=== PATIENT | male | born 1990 | race African-American/Black ===

== ENCOUNTER 2017-06-04 02:09 | Inpatient (IN) | payer MEDICAID ==
[2017-06-04] VITALS (7 sets, daily range): BP systolic 113–131; BP diastolic 64–72
[~2017-06-04] VITALS: Ht 185.4 cm; Wt 69.2 kg
[2017-06-04] MEDS ORDERED: SODIUM CHLORIDE 0.9% 1,000ML IVBOLUS ONE (03:00)
[2017-06-04] MEDS ORDERED: ONDANSETRON 2MG/ML, 2ML IVPush ONE (03:00)
[2017-06-04] MEDS ORDERED: SODIUM CHLORIDE FLUSH 10ML SYR IVF ONE (03:00)
[2017-06-04] MEDS ORDERED: ONDANSETRON 2MG/ML, 2ML ONE (03:12)
[2017-06-04] MEDS ORDERED: HYDROmorphone 2 MG/ML, 1ML ONE ×2 (03:12→11:20)
[2017-06-04] MEDS: HYDROmorphone 2 MG/ML, 1ML IVPush PRN ×4 (03:28→23:15)
[2017-06-04 03:30] LABS: ALBUMIN 3.8 g/dL (3.4-5.0); ANION GAP 8 mmol/L (5-15); CALCIUM 8.2 mg/dL (8.5-10.1); CHLORIDE 110 mmol/L (98-107); CREATININE 0.61 mg/dL (0.7-1.3)
[2017-06-04 03:43] LABS: MD YES; MEAN CORPUSCULAR HEMOGLOBIN 34.3 pg (27.5-34.5); MEAN CORPUSCULAR HGB CONC 34.2 g/dL (33.2-36.2); MEAN CORPUSCULAR VOLUME 100.1 fL (81-97); MEAN PLATELET VOLUME 9.3 fL (7.4-10.4); PLATELET COUNT 264 x10^3/uL (130-400); RED BLOOD COUNT 2.07 x10^6/uL (4.38-5.82); RED CELL DISTRIBUTION WIDTH 22.6 % (9.4-14.8)
[2017-06-04 03:47] LABS: BAND#(MANUAL) 0.17 x10^3/uL; BANDS%(MANUAL) 1 % (0-7); LYMPH#(MANUAL) 4.39 x10^3/uL (1-3.4); LYMPHS% (MANUAL) 26 % (22-44); MONOS#(MANUAL) 1.18 x10^3/uL (0.3-2.7); MONOS% (MANUAL) 7 % (2-9); NRBC % (MANUAL) 2 % (0-1); SEG#(MANUAL) 11.15 x10^3/uL (1.8-6.8); SEGS% (MANUAL) 66 % (42-75)
[2017-06-04 03:48] LABS: ANISOCYTOSIS 2+; OVALOCYTES 2+; POLYCHROMASIA 1+
[2017-06-04 03:49] LABS: SICKLE CELLS 1+; TARGET CELLS 1+
[2017-06-04 03:51] LABS: <PLATELET ESTIMATE> ADEQUATE; LARGE PLATELETS 1+
[2017-06-04 04:07] LABS: CULTURE INDICATED? YES; MICROSCOPIC INDICATED
[2017-06-04 04:14] LABS: ABSOLUTE RETICS # 0.191 x10^6/uL (0.5-1.5); RETICULOCYTE COUNT % 9.22 % (0.5-1.5)
[2017-06-04] MEDS ORDERED: CEFTRIAXONE PMX 1GM/50ML 50 ML ONE (04:52)
[2017-06-04] MEDS: AZITHROMYCIN 500 MG in SODIUM CHLORIDE 0.9% 250 ML IV ONE ×2 (05:00→05:30)
[2017-06-04] MEDS ORDERED: CEFTRIAXONE PMX 1GM/50ML 50 ML IV ONE (05:00)
[2017-06-04] MEDS ORDERED: SODIUM CHLORIDE 0.9% 1,000 ML IV ONE (05:00)
[2017-06-04] MEDS ORDERED: OXYC40TA27 PO (05:03)
[2017-06-04 05:54] LABS: ALBUMIN 3.5 g/dL (3.4-5.0)
[2017-06-04 05:58] LABS: BILIRUBIN, DIRECT 0.5 mg/dL (0.1-0.2); BILIRUBIN,INDIRECT 4.1 mg/dL (0.0-2.0); BILIRUBIN,TOTAL 4.6 mg/dL (0.2-1.0); TOTAL PROTEIN 7.1 g/dL (6.4-8.2)
[2017-06-04] MEDS ORDERED: TRAZODONE 50MG TABLET PO PRN (06:00)
[2017-06-04] MEDS ORDERED: ONDANSETRON 2MG/ML, 2ML IVPush PRN (06:00)
[2017-06-04] MEDS ORDERED: DOCUSATE 100 MG CAPSULE PO PRN (06:00)
[2017-06-04] MEDS ORDERED: LABETALOL 5MG/ML, 20ML IVPush PRN (06:00)
[2017-06-04] MEDS ORDERED: POLYETHYLENE GLYCOL 17 GM PACKET PO PRN (06:00)
[2017-06-04 06:04] LABS: MEAN CORPUSCULAR HEMOGLOBIN 34.5 pg (27.5-34.5); MEAN CORPUSCULAR HGB CONC 34.4 g/dL (33.2-36.2); MEAN CORPUSCULAR VOLUME 100.5 fL (81-97); MEAN PLATELET VOLUME 9.7 fL (7.4-10.4); PLATELET COUNT 249 x10^3/uL (130-400); RED BLOOD COUNT 1.86 x10^6/uL (4.38-5.82); RED CELL DISTRIBUTION WIDTH 21.9 % (9.4-14.8)
[2017-06-04 06:17] LABS: MD YES
[2017-06-04 06:20] LABS: LYMPH#(MANUAL) 4.56 x10^3/uL (1-3.4); LYMPHS% (MANUAL) 27 % (22-44); MONOS#(MANUAL) 1.52 x10^3/uL (0.3-2.7); MONOS% (MANUAL) 9 % (2-9); NRBC % (MANUAL) 3 % (0-1); SEG#(MANUAL) 10.82 x10^3/uL (1.8-6.8); SEGS% (MANUAL) 64 % (42-75)
[2017-06-04 06:21] LABS: OVALOCYTES 2+
[2017-06-04 06:22] LABS: TARGET CELLS 1+
[2017-06-04 06:23] LABS: SICKLE CELLS 1+
[2017-06-04 06:24] LABS: ANISOCYTOSIS 2+
[2017-06-04 06:25] LABS: <PLATELET ESTIMATE> ADEQUATE; LARGE PLATELETS 1+; POLYCHROMASIA 2+
[2017-06-04] MEDS ORDERED: OXYcodone IR 5MG TABLET ONE (09:13)
[2017-06-04] MEDS ORDERED: FAMOTIDINE 20 MG TABLET ONE (09:13)
[2017-06-04] MEDS ORDERED: ONDANSETRON ODT 4 MG ONE (09:13)
[2017-06-04] MEDS: ONDANSETRON ODT 4 MG PO PRN ×2 (09:17→14:33)
[2017-06-04] MEDS: FAMOTIDINE 20 MG TABLET PO SCH ×2 (09:17→19:43)
[2017-06-04] MEDS: OXYcodone IR 5MG TABLET PO PRN ×3 (09:17→22:04)
[2017-06-04] MEDS: D5%-0.45NACL+KCL 20MEQ 1,000 ML IV SCH ×2 (17:29→21:00)
[2017-06-04] MEDS: ACETAMINOPHEN 325 MG TABLET PO PRN (18:10)
[2017-06-04 19:26] LABS: MD YES; MEAN CORPUSCULAR HGB CONC 34.6 g/dL (33.2-36.2); MEAN CORPUSCULAR VOLUME 95.3 fL (81-97); MEAN PLATELET VOLUME 9.2 fL (7.4-10.4); PLATELET COUNT 261 x10^3/uL (130-400); RED BLOOD COUNT 2.59 x10^6/uL (4.38-5.82); RED CELL DISTRIBUTION WIDTH 23.6 % (9.4-14.8)
[2017-06-04 19:29] LABS: LYMPH#(MANUAL) 1.84 x10^3/uL (1-3.4); LYMPHS% (MANUAL) 10 % (22-44); MONOS#(MANUAL) 2.94 x10^3/uL (0.3-2.7); MONOS% (MANUAL) 16 % (2-9); SEG#(MANUAL) 13.62 x10^3/uL (1.8-6.8); SEGS% (MANUAL) 74 % (42-75)
[2017-06-04 19:30] LABS: <PLATELET ESTIMATE> ADEQUATE; LARGE PLATELETS 1+
[2017-06-04 19:31] LABS: ANISOCYTOSIS 2+; OVALOCYTES 2+; POLYCHROMASIA 1+; SICKLE CELLS 2+
[2017-06-04 19:34] LABS: TARGET CELLS 1+
[2017-06-04 20:39] LABS: RAPID INFLUENZA A Negative (Negative); RAPID INFLUENZA B Negative (Negative)
[2017-06-05] MEDS: HYDROmorphone 2 MG/ML, 1ML IVPush PRN ×3 (00:01→23:57)
[2017-06-05] MEDS ORDERED: D5%-0.45NACL+KCL 20MEQ 1,000 ML IV SCH (01:00)
[2017-06-05 02:25] VITALS: BP 111/62
[2017-06-05] MEDS: OXYcodone IR 5MG TABLET PO PRN ×4 (02:28→23:02)
[2017-06-05] MEDS: CEFTRIAXONE 1,000 MG in DEXTROSE 5% 50 ML IV SCH (05:08)
[2017-06-05 05:33] LABS: ALBUMIN 3.5 g/dL (3.4-5.0); ANION GAP 7 mmol/L (5-15); CALCIUM 7.9 mg/dL (8.5-10.1); CHLORIDE 108 mmol/L (98-107)
[2017-06-05 05:36] LABS: ALANINE AMINOTRANSFERASE 17 U/L (12-78); ALKALINE PHOSPHATASE 64 U/L (45-117); BILIRUBIN,TOTAL 5.6 mg/dL (0.2-1.0); CREATININE 0.59 mg/dL (0.7-1.3); TOTAL PROTEIN 7.1 g/dL (6.4-8.2)
[2017-06-05] MEDS ORDERED: CEFTRIAXONE PMX 1GM/50ML 50 ML IV SCH (06:00)
[2017-06-05 06:11] LABS: MEAN CORPUSCULAR HEMOGLOBIN 33.6 pg (27.5-34.5); MEAN CORPUSCULAR HGB CONC 34.9 g/dL (33.2-36.2); MEAN CORPUSCULAR VOLUME 96.5 fL (81-97); MEAN PLATELET VOLUME 9.7 fL (7.4-10.4); PLATELET COUNT 252 x10^3/uL (130-400); RED BLOOD COUNT 2.44 x10^6/uL (4.38-5.82); RED CELL DISTRIBUTION WIDTH 23.5 % (9.4-14.8)
[2017-06-05 06:12] LABS: MD YES
[2017-06-05 06:21] LABS: LYMPH#(MANUAL) 7.62 x10^3/uL (1-3.4); LYMPHS% (MANUAL) 34 % (22-44); MONOS#(MANUAL) 3.14 x10^3/uL (0.3-2.7); MONOS% (MANUAL) 14 % (2-9); SEG#(MANUAL) 11.65 x10^3/uL (1.8-6.8); SEGS% (MANUAL) 52 % (42-75)
[2017-06-05 06:22] LABS: ANISOCYTOSIS 2+
[2017-06-05 06:23] LABS: HYPOCHROMIA 1+; MICROCYTOSIS 1+; OVALOCYTES 1+; SCHISTOCYTES 1+; SPHEROCYTES 1+
[2017-06-05 06:24] LABS: SICKLE CELLS 2+; TARGET CELLS 1+
[2017-06-05 06:26] LABS: <PLATELET ESTIMATE> ADEQUATE
[2017-06-05 06:27] LABS: <PLT MORPHOLOGY> NORMAL PLT MORPH; LARGE PLATELETS 1+
[2017-06-05] MEDS: AZITHROMYCIN 250 MG TABLET PO SCH (07:54)
[2017-06-05] MEDS: FAMOTIDINE 20 MG TABLET PO SCH ×2 (07:55→21:37)
[2017-06-05 08:45] VITALS: BP 107/56
[2017-06-05 13:31] VITALS: BP 119/63
[2017-06-05 15:55] LABS: ALANINE AMINOTRANSFERASE 17 U/L (12-78); ALBUMIN 3.5 g/dL (3.4-5.0); ANION GAP 5 mmol/L (5-15); CHLORIDE 110 mmol/L (98-107)
[2017-06-05 15:57] LABS: ALKALINE PHOSPHATASE 71 U/L (45-117); BILIRUBIN,TOTAL 5.3 mg/dL (0.2-1.0); TOTAL PROTEIN 7.5 g/dL (6.4-8.2)
[2017-06-05] MEDS ORDERED: OMNIPAQUE 350 MG/ML, 75ML BOTTLE ONE (16:02)
[2017-06-05 16:05] LABS: MD YES; MEAN CORPUSCULAR HEMOGLOBIN 33.2 pg (27.5-34.5); MEAN CORPUSCULAR HGB CONC 34.9 g/dL (33.2-36.2); MEAN CORPUSCULAR VOLUME 95.3 fL (81-97); MEAN PLATELET VOLUME 9.1 fL (7.4-10.4); PLATELET COUNT 276 x10^3/uL (130-400); RED BLOOD COUNT 2.44 x10^6/uL (4.38-5.82); RED CELL DISTRIBUTION WIDTH 23.1 % (9.4-14.8)
[2017-06-05] MEDS: METRONIDAZOLE PMX 500MG/100ML 100 ML IV SCH ×2 (16:13→23:57)
[2017-06-05] MEDS: GUAIFENESIN 200 MG TABLET PO SCH ×2 (16:20→21:37)
[2017-06-05 16:40] LABS: EOS#(MANUAL) 0.17 x10^3/uL (0.0-0.4); EOS% (MANUAL) 1 % (1-7); LYMPH#(MANUAL) 4.84 x10^3/uL (1-3.4); LYMPHS% (MANUAL) 28 % (22-44); MONOS#(MANUAL) 1.73 x10^3/uL (0.3-2.7); MONOS% (MANUAL) 10 % (2-9); NRBC % (MANUAL) 1 % (0-1); SEGS% (MANUAL) 61 % (42-75)
[2017-06-05 16:41] LABS: ANISOCYTOSIS 2+; HYPOCHROMIA 1+; POLYCHROMASIA 1+
[2017-06-05 16:42] LABS: OVALOCYTES 2+; SICKLE CELLS 2+; TARGET CELLS 1+
[2017-06-05 16:50] LABS: <PLATELET ESTIMATE> ADEQUATE; LARGE PLATELETS 1+
[2017-06-05 18:19] VITALS: BP 115/53
[2017-06-06 01:56] VITALS: BP 117/63
[2017-06-06] MEDS: OXYcodone IR 5MG TABLET PO PRN ×2 (03:03→14:51)
[2017-06-06 04:58] LABS: MEAN CORPUSCULAR HEMOGLOBIN 32.4 pg (27.5-34.5); MEAN CORPUSCULAR HGB CONC 33.6 g/dL (33.2-36.2); MEAN CORPUSCULAR VOLUME 96.3 fL (81-97); MEAN PLATELET VOLUME 9.6 fL (7.4-10.4); PLATELET COUNT 281 x10^3/uL (130-400); RED BLOOD COUNT 2.38 x10^6/uL (4.38-5.82); RED CELL DISTRIBUTION WIDTH 22.8 % (9.4-14.8)
[2017-06-06 05:04] LABS: ALBUMIN 3.4 g/dL (3.4-5.0); ANION GAP 4 mmol/L (5-15); CALCIUM 8.1 mg/dL (8.5-10.1); CHLORIDE 109 mmol/L (98-107)
[2017-06-06 05:09] LABS: ALANINE AMINOTRANSFERASE 19 U/L (12-78); ALKALINE PHOSPHATASE 69 U/L (45-117); BILIRUBIN,TOTAL 5.3 mg/dL (0.2-1.0); CREATININE 0.59 mg/dL (0.7-1.3); TOTAL PROTEIN 7.2 g/dL (6.4-8.2)
[2017-06-06] MEDS: CEFTRIAXONE 1,000 MG in DEXTROSE 5% 50 ML IV SCH (05:37)
[2017-06-06] MEDS: GUAIFENESIN 200 MG TABLET PO SCH ×4 (05:38→21:07)
[2017-06-06 05:41] LABS: MD YES
[2017-06-06 05:43] LABS: LYMPH#(MANUAL) 5.49 x10^3/uL (1-3.4); LYMPHS% (MANUAL) 30 % (22-44); MONOS#(MANUAL) 2.38 x10^3/uL (0.3-2.7); MONOS% (MANUAL) 13 % (2-9); SEG#(MANUAL) 10.43 x10^3/uL (1.8-6.8); SEGS% (MANUAL) 57 % (42-75)
[2017-06-06 05:44] LABS: ANISOCYTOSIS 2+; HYPOCHROMIA 1+; NRBC % (MANUAL) 1 % (0-1); POLYCHROMASIA 1+
[2017-06-06 05:45] LABS: <PLATELET ESTIMATE> ADEQUATE; GIANT PLATELETS 1+; LARGE PLATELETS 1+; OVALOCYTES 1+; SICKLE CELLS 2+; TARGET CELLS 1+
[2017-06-06 05:46] LABS: HOWELL-JOLLY BODIES 1+
[2017-06-06 06:49] VITALS: BP 111/66
[2017-06-06] MEDS: AZITHROMYCIN 250 MG TABLET PO SCH (08:17)
[2017-06-06] MEDS: FAMOTIDINE 20 MG TABLET PO SCH (08:17)
[2017-06-06] MEDS: METRONIDAZOLE PMX 500MG/100ML 100 ML IV SCH ×3 (08:17→23:36)
[2017-06-06] MEDS: HYDROmorphone 2 MG/ML, 1ML IVPush PRN ×4 (08:58→21:07)
[2017-06-06] MEDS: SODIUM CHLORIDE 0.45% 1,000 ML IV SCH ×2 (11:29→21:07)
[2017-06-06 12:00] LABS: BILIRUBIN, DIRECT 0.5 mg/dL (0.1-0.2)
[2017-06-06 12:01] LABS: BILIRUBIN,INDIRECT 4.7 mg/dL (0.0-2.0); BILIRUBIN,TOTAL 5.2 mg/dL (0.2-1.0)
[2017-06-06 12:42] VITALS: BP 120/72
[2017-06-06 20:04] VITALS: BP 124/71
[2017-06-07] VITALS (10 sets, daily range): BP systolic 109–126; BP diastolic 50–67
[2017-06-07] MEDS: OXYcodone IR 5MG TABLET PO PRN (00:37)
[2017-06-07] MEDS: HYDROmorphone 2 MG/ML, 1ML IVPush PRN ×2 (03:50→08:51)
[2017-06-07 05:30] LABS: MEAN CORPUSCULAR HEMOGLOBIN 32.8 pg (27.5-34.5); MEAN CORPUSCULAR HGB CONC 33.9 g/dL (33.2-36.2); MEAN CORPUSCULAR VOLUME 96.9 fL (81-97); MEAN PLATELET VOLUME 9.7 fL (7.4-10.4); PLATELET COUNT 302 x10^3/uL (130-400); RED BLOOD COUNT 2.13 x10^6/uL (4.38-5.82); RED CELL DISTRIBUTION WIDTH 22.5 % (9.4-14.8)
[2017-06-07] MEDS: CEFTRIAXONE 1,000 MG in SODIUM CHLORIDE 0.9% 50 ML IV SCH (05:40)
[2017-06-07] MEDS: SODIUM CHLORIDE 0.45% 1,000 ML IV SCH ×3 (05:40→22:17)
[2017-06-07 05:42] LABS: ANION GAP 8 mmol/L (5-15); CALCIUM 8.3 mg/dL (8.5-10.1); CHLORIDE 110 mmol/L (98-107)
[2017-06-07] MEDS: GUAIFENESIN 200 MG TABLET PO SCH ×4 (05:43→20:28)
[2017-06-07 05:45] LABS: CREATININE 0.52 mg/dL (0.7-1.3)
[2017-06-07 05:57] LABS: MD YES
[2017-06-07 05:59] LABS: ANISOCYTOSIS 2+; HYPOCHROMIA 1+; LYMPH#(MANUAL) 4.29 x10^3/uL (1-3.4); LYMPHS% (MANUAL) 26 % (22-44); MONOS#(MANUAL) 3.14 x10^3/uL (0.3-2.7); MONOS% (MANUAL) 19 % (2-9); POLYCHROMASIA 1+; SEG#(MANUAL) 9.08 x10^3/uL (1.8-6.8); SEGS% (MANUAL) 55 % (42-75)
[2017-06-07 06:00] LABS: SICKLE CELLS 2+; TARGET CELLS 2+
[2017-06-07 06:03] LABS: <PLATELET ESTIMATE> ADEQUATE; GIANT PLATELETS 1+; HOWELL-JOLLY BODIES 1+; LARGE PLATELETS 1+
[2017-06-07] MEDS: METRONIDAZOLE PMX 500MG/100ML 100 ML IV SCH ×3 (08:51→23:35)
[2017-06-07] MEDS: AZITHROMYCIN 250 MG TABLET PO SCH (08:51)
[2017-06-07] MEDS: ACETAMINOPHEN 325 MG TABLET PO PRN (10:27)
[2017-06-08 03:55] VITALS: BP 114/58
[2017-06-08] MEDS: CEFTRIAXONE 1,000 MG in SODIUM CHLORIDE 0.9% 50 ML IV SCH (05:52)
[2017-06-08 06:48] VITALS: BP 114/61
[2017-06-08] MEDS: METRONIDAZOLE PMX 500MG/100ML 100 ML IV SCH ×3 (08:14→23:45)
[2017-06-08] MEDS: GUAIFENESIN 200 MG TABLET PO SCH ×4 (08:14→20:33)
[2017-06-08] MEDS: AZITHROMYCIN 250 MG TABLET PO SCH (08:15)
[2017-06-08 09:55] LABS: MEAN CORPUSCULAR HEMOGLOBIN 32.4 pg (27.5-34.5); MEAN CORPUSCULAR HGB CONC 34.4 g/dL (33.2-36.2); MEAN PLATELET VOLUME 8.6 fL (7.4-10.4); PLATELET COUNT 352 x10^3/uL (130-400); RED BLOOD COUNT 2.61 x10^6/uL (4.38-5.82); RED CELL DISTRIBUTION WIDTH 21.6 % (9.4-14.8)
[2017-06-08 10:01] LABS: ANION GAP 9 mmol/L (5-15); CALCIUM 8.3 mg/dL (8.5-10.1); CHLORIDE 109 mmol/L (98-107); CREATININE 0.56 mg/dL (0.7-1.3)
[2017-06-08 10:02] LABS: ALBUMIN 3.7 g/dL (3.4-5.0)
[2017-06-08 10:08] LABS: MD YES
[2017-06-08 10:41] LABS: LYMPHS% (MANUAL) 24 % (22-44); MONOS#(MANUAL) 1.23 x10^3/uL (0.3-2.7); MONOS% (MANUAL) 8 % (2-9); SEG#(MANUAL) 10.47 x10^3/uL (1.8-6.8); SEGS% (MANUAL) 68 % (42-75)
[2017-06-08 10:42] LABS: <PLATELET ESTIMATE> ADEQUATE; <PLT MORPHOLOGY> NORMAL PLT MORPH; ANISOCYTOSIS 2+; HYPOCHROMIA 1+; LARGE PLATELETS 1+; OVALOCYTES 1+; SICKLE CELLS 1+; TARGET CELLS 1+
[2017-06-08] MEDS: SODIUM CHLORIDE 0.45% 1,000 ML IV SCH (10:44)
[2017-06-08] MEDS ORDERED: SODIUM PHOSPHATE 4 MEQ/ML IV SCH (14:00)
[2017-06-08] MEDS ORDERED: MAGNESIUM SULFATE PMX 2GM/50ML 50 ML IV ONE (14:00)
[2017-06-08] MEDS ORDERED: SODIUM PHOSPHATE 30 MMOL in SODIUM CHLORIDE 0.9% 500 ML IV ONE (14:00)
[2017-06-08 14:26] VITALS: BP 106/54
[2017-06-08 20:15] VITALS: BP 102/56
[2017-06-09 04:28] LABS: MEAN CORPUSCULAR HGB CONC 33.4 g/dL (33.2-36.2); MEAN CORPUSCULAR VOLUME 95.9 fL (81-97); MEAN PLATELET VOLUME 9.6 fL (7.4-10.4); PLATELET COUNT 349 x10^3/uL (130-400); RED BLOOD COUNT 2.44 x10^6/uL (4.38-5.82); RED CELL DISTRIBUTION WIDTH 21.1 % (9.4-14.8)
[2017-06-09 04:41] LABS: CALCIUM 8.2 mg/dL (8.5-10.1); CHLORIDE 114 mmol/L (98-107)
[2017-06-09 04:47] LABS: ALANINE AMINOTRANSFERASE 11 U/L (12-78); ALBUMIN 3.4 g/dL (3.4-5.0); ALKALINE PHOSPHATASE 61 U/L (45-117); ANION GAP 8 mmol/L (5-15); BILIRUBIN,TOTAL 3.3 mg/dL (0.2-1.0); CREATININE 0.43 mg/dL (0.7-1.3); TOTAL PROTEIN 7.3 g/dL (6.4-8.2)
[2017-06-09 04:58] LABS: BASOPHILS # (AUTO) 0.02 x10^3/uL (0-0.1); BASOPHILS % (AUTO) 0 % (0-1); EOSINOPHILS # (AUTO) 0.11 x10^3/uL (0-0.4); EOSINOPHILS % (AUTO) 1 % (1-7); LYMPHOCYTES # (AUTO) 3.06 x10^3/uL (1-3.4); LYMPHOCYTES % (AUTO) 25 % (22-44); MD MORPH REVIEW ONLY; MONOCYTES % (AUTO) 5 % (2-9); NEUTROPHILS # (AUTO) 8.51 x10^3/uL (1.8-6.8); NEUTROPHILS % (AUTO) 69 % (42-75)
[2017-06-09 04:59] LABS: ANISOCYTOSIS 2+; HYPOCHROMIA 1+; OVALOCYTES 1+; POLYCHROMASIA 1+; TARGET CELLS 1+
[2017-06-09 05:00] LABS: <PLATELET ESTIMATE> ADEQUATE; LARGE PLATELETS 1+; SICKLE CELLS 1+
[2017-06-09 05:13] VITALS: BP 115/69
[2017-06-09] MEDS: SODIUM CHLORIDE 0.45% 1,000 ML IV SCH (05:52)
[2017-06-09] MEDS: CEFTRIAXONE 1,000 MG in SODIUM CHLORIDE 0.9% 50 ML IV SCH (05:52)
[2017-06-09] MEDS: GUAIFENESIN 200 MG TABLET PO SCH (06:36)
[2017-06-09] MEDS ORDERED: CEFD300C37 PO (07:01)
[2017-06-09] MEDS ORDERED: DOXY100T PO (07:01)
[2017-06-09] MEDS ORDERED: METR500T PO (07:02)
[2017-06-09 07:18] VITALS: BP 109/56
[2017-06-09] MEDS: AZITHROMYCIN 250 MG TABLET PO SCH (08:15)
[2017-06-09] MEDS: METRONIDAZOLE PMX 500MG/100ML 100 ML IV SCH (08:15)
== END 2017-06-09 10:05 | disposition home or self-care (01) | DRG 871 ==
LOC: ED 04:00 → EDIP 04:47 → 3NW 11:00 → DCLOUNGE 06-09 10:00
PROVIDERS: ADMIT Internal Medicine; ATTEND Internal Medicine
PROC: 30233N1 Transfusion of Nonautologous Red Blood Cells into Peripheral Vein, Percutaneous Approach (ICD-10-PCS; principal; 2017-06-04)
DX: A41.9 Sepsis, unspecified organism (principal); D57.00 Hb-SS disease with crisis, unspecified; J18.9 Pneumonia, unspecified organism; R17 Unspecified jaundice; R31.9 Hematuria, unspecified; F12.90 Cannabis use, unspecified, uncomplicated; R09.02 Hypoxemia; Z90.49 Acquired absence of other specified parts of digestive tract
CPT/HCPCS: 36415; 71046; 71260; 80048; 80053; 80076; 81001; 82040; 82247; 82248; 83615; 83735; 84100; 84145; 85025; 85045; 86850; 86900; 86902; 86923; 87040; 87070; 87086; 87205; 87400; J0456; J0696; J1170; J2405; Q0162; Q9967; J3475; J3480; J7030; J7040; J7050; P9016

== ENCOUNTER 2017-10-09 16:30 | Inpatient (IN) | payer MEDICAID ==
[~2017-10-09] VITALS: Ht 185.4 cm; Wt 69.2 kg
[~2017-10-09 16:30] MED LIST: CEFD300C37 PO; DOXY100T PO; METR500T PO; OXYC40TA27 PO
[2017-10-09] MEDS ORDERED: SODIUM CHLORIDE FLUSH 10ML SYR IVF ONE ×2 (17:00→18:00)
[2017-10-09 17:20] LABS: ALANINE AMINOTRANSFERASE 30 U/L (12-78); ALBUMIN 4.6 g/dL (3.4-5.0); ANION GAP 6 mmol/L (5-15); CALCIUM 8.6 mg/dL (8.5-10.1); CHLORIDE 111 mmol/L (98-107); CREATININE 0.71 mg/dL (0.7-1.3)
[2017-10-09 17:24] LABS: ALKALINE PHOSPHATASE 95 U/L (45-117); BILIRUBIN,TOTAL 5.6 mg/dL (0.2-1.0); TOTAL PROTEIN 8.3 g/dL (6.4-8.2); TROPONIN I < 0.015 ng/mL (0.000-0.045)
[2017-10-09] MEDS ORDERED: MORPHINE SULFATE 4 MG/ML, 1ML ONE ×3 (17:48→20:09)
[2017-10-09 17:54] LABS: MEAN CORPUSCULAR HGB CONC 34.3 g/dL (33.2-36.2); MEAN CORPUSCULAR VOLUME 107.7 fL (81-97); MEAN PLATELET VOLUME 9.4 fL (7.4-10.4); PLATELET COUNT 177 x10^3/uL (130-400); RED BLOOD COUNT 2.05 x10^6/uL (4.38-5.82); RED CELL DISTRIBUTION WIDTH 23.7 % (9.4-14.8)
[2017-10-09] MEDS: MORPHINE SULFATE 4 MG/ML, 1ML IVPush PRN ×3 (17:56→20:10)
[2017-10-09 18:00] LABS: HEMOGRAM NOTE RECHECKED; MD YES
[2017-10-09] MEDS ORDERED: SODIUM CHLORIDE 0.9% 1,000ML IVBOLUS ONE (18:00)
[2017-10-09 18:02] LABS: BASOS% (MANUAL) 1 % (0-1); LYMPH#(MANUAL) 2.94 x10^3/uL (1-3.4); LYMPHS% (MANUAL) 15 % (22-44); MONOS#(MANUAL) 1.37 x10^3/uL (0.3-2.7); MONOS% (MANUAL) 7 % (2-9); MYELOCYTES% (MANUAL) 1 % (0-0); NRBC % (MANUAL) 2 % (0-1); REACTIVE LYMPHS % (MANUAL) 1 % (0-0); SEGS% (MANUAL) 75 % (42-75)
[2017-10-09 18:03] LABS: ANISOCYTOSIS 2+
[2017-10-09 18:04] LABS: OVALOCYTES 1+; POLYCHROMASIA 2+; SICKLE CELLS 2+
[2017-10-09 18:05] LABS: <PLATELET ESTIMATE> ADEQUATE; GIANT PLATELETS 1+; LARGE PLATELETS 1+
[2017-10-09 18:47] LABS: ABSOLUTE RETICS # 0.311 x10^6/uL (0.5-1.5); RED BLOOD COUNT 2.01 x10^6/uL (4.38-5.82); RETICULOCYTE COUNT % 15.48 % (0.5-1.5)
[2017-10-09] MEDS ORDERED: HYDROmorphone 1 MG/ML, 1ML IV STA (21:44)
[2017-10-09] MEDS ORDERED: HYDROmorphone 1 MG/ML, 1ML ONE (21:46)
[2017-10-10] MEDS ORDERED: ONDANSETRON ODT 4 MG PO PRN (00:30)
[2017-10-10] MEDS ORDERED: PROMETHAZINE 25 MG/ML, 1ML IM PRN (00:30)
[2017-10-10] MEDS ORDERED: BISACODYL 10 MG SUPP PR PRN (00:30)
[2017-10-10] MEDS ORDERED: ONDANSETRON 2MG/ML, 2ML IVPush PRN (00:30)
[2017-10-10] MEDS ORDERED: hydrALAzine 20 MG/ML, 1ML IVPush PRN (00:30)
[2017-10-10 01:04] VITALS: BP 130/69
[2017-10-10] MEDS: MORPHINE SULFATE 4 MG/ML, 1ML IVPush PRN (01:07)
[2017-10-10] MEDS: morphine SULFATE 10 MG/ML, 1ML IVPush PRN ×8 (01:16→22:03)
[2017-10-10] MEDS: SODIUM CHLORIDE 0.9% 1,000 ML IV SCH ×3 (01:17→23:11)
[2017-10-10] MEDS: OXYcodone IR 5MG TABLET PO PRN ×5 (01:25→22:37)
[2017-10-10] MEDS: OxyconTIN ER 20 MG TAB.ER PO SCH ×2 (03:00→15:28)
[2017-10-10 05:07] LABS: MICROSCOPIC INDICATED
[2017-10-10 05:08] LABS: CULTURE INDICATED? YES
[2017-10-10 05:36] LABS: FREE T4 (FREE THYROXINE) 1.18 ng/dL (0.76-1.46); THYROID STIMULATING HORMONE 1.89 mIU/L (0.358-3.740)
[2017-10-10] MEDS ORDERED: MAGNESIUM SULFATE PMX 4GM/100M 100 ML IV ONE (07:30)
[2017-10-10] MEDS: ACETAMINOPHEN 325 MG TABLET PO SCH ×3 (08:27→20:55)
[2017-10-10] MEDS: SENNA/DOCUSATE TABLET PO SCH (08:32)
[2017-10-10 08:34] VITALS: BP 142/73
[2017-10-10 08:41] LABS: TOTAL IRON BINDING CAPACITY 200 mcg/dL (250-450)
[2017-10-10 08:44] LABS: % IRON SATURATION 20 % (20-55); IRON LEVEL 40 mcg/dL (65-175)
[2017-10-10] MEDS ORDERED: VANCOMYCIN PER PHARMACY MC PRN (10:00)
[2017-10-10] MEDS ORDERED: PHARMACOKINETIC MONITORING MC PRN (10:30)
[2017-10-10 10:52] LABS: MD YES; MEAN CORPUSCULAR HEMOGLOBIN 37.3 pg (27.5-34.5); MEAN CORPUSCULAR HGB CONC 35.4 g/dL (33.2-36.2); MEAN CORPUSCULAR VOLUME 105.4 fL (81-97); MEAN PLATELET VOLUME 9.1 fL (7.4-10.4); PLATELET COUNT 211 x10^3/uL (130-400); RED BLOOD COUNT 1.86 x10^6/uL (4.38-5.82); RED CELL DISTRIBUTION WIDTH 24.1 % (9.4-14.8)
[2017-10-10 10:57] LABS: BAND#(MANUAL) 0.17 x10^3/uL; BANDS%(MANUAL) 1 % (0-7); LYMPH#(MANUAL) 1.71 x10^3/uL (1-3.4); LYMPHS% (MANUAL) 10 % (22-44); MONOS% (MANUAL) 7 % (2-9); NRBC % (MANUAL) 7 % (0-1); REACTIVE LYMPHS # (MANUAL) 0.17 x10^3/uL (0-0); REACTIVE LYMPHS % (MANUAL) 1 % (0-0); SEG#(MANUAL) 13.85 x10^3/uL (1.8-6.8); SEGS% (MANUAL) 81 % (42-75)
[2017-10-10 10:58] LABS: ANISOCYTOSIS 2+; POLYCHROMASIA 2+; TARGET CELLS 1+
[2017-10-10 10:59] LABS: <PLATELET ESTIMATE> ADEQUATE; LARGE PLATELETS 1+; SICKLE CELLS 2+
[2017-10-10] MEDS: ENOXAPARIN 40 MG/0.4 ML SQ SCH (11:43)
[2017-10-10 12:45] VITALS: BP 137/76
[2017-10-10] MEDS: CEFTRIAXONE PMX 1GM/50ML 50 ML IV SCH (13:14)
[2017-10-10] MEDS: VANCOMYCIN 1,500 MG in SODIUM CHLORIDE 0.9% 250 ML IV SCH (14:26)
[2017-10-10] MEDS ORDERED: GADOBUTROL 7.5 MMOL/7.5 ML PFS ONE (16:51)
[2017-10-10] MEDS ORDERED: MORPHINE SULFATE 4 MG/ML, 1ML IVPush ONE (19:00)
[2017-10-10 19:57] VITALS: BP 130/72
[2017-10-11 01:36] VITALS: BP 127/77
[2017-10-11] MEDS: OxyconTIN ER 20 MG TAB.ER PO SCH ×2 (02:24→15:51)
[2017-10-11] MEDS: VANCOMYCIN 1,500 MG in SODIUM CHLORIDE 0.9% 250 ML IV SCH ×2 (02:26→15:50)
[2017-10-11] MEDS: ACETAMINOPHEN 325 MG TABLET PO SCH ×4 (02:58→23:46)
[2017-10-11] MEDS: OXYcodone IR 5MG TABLET PO PRN ×4 (02:58→23:46)
[2017-10-11] MEDS: morphine SULFATE 10 MG/ML, 1ML IVPush PRN ×7 (03:55→21:30)
[2017-10-11 05:33] LABS: ALBUMIN 3.8 g/dL (3.4-5.0); ANION GAP 7 mmol/L (5-15); CALCIUM 7.9 mg/dL (8.5-10.1); CHLORIDE 111 mmol/L (98-107)
[2017-10-11 05:36] LABS: ALANINE AMINOTRANSFERASE 26 U/L (12-78); ALKALINE PHOSPHATASE 102 U/L (45-117); BILIRUBIN,TOTAL 5.9 mg/dL (0.2-1.0); CHOL/HDL RATIO 3.3; CHOLESTEROL, TOTAL 86 mg/dL (140-239); CREATININE 0.54 mg/dL (0.7-1.3); HDL CHOL % 30 % (26-37); HDL CHOLESTEROL (DIRECT) 26 mg/dL (40-60); TOTAL PROTEIN 7.2 g/dL (6.4-8.2)
[2017-10-11 05:40] LABS: LDL CHOLESTEROL,CALCULATED 33 mg/dL (54-169); LDL/HDL RATIO 1.3 (0.5-3.0); TRIGLYCERIDES 136 mg/dL (50-200); VLDL CHOLESTEROL 27 mg/dL (0-25)
[2017-10-11 07:23] LABS: MEAN CORPUSCULAR HEMOGLOBIN 37.4 pg (27.5-34.5); MEAN CORPUSCULAR HGB CONC 34.5 g/dL (33.2-36.2); MEAN CORPUSCULAR VOLUME 108.4 fL (81-97); MEAN PLATELET VOLUME 10.1 fL (7.4-10.4); PLATELET COUNT 177 x10^3/uL (130-400); RED BLOOD COUNT 1.78 x10^6/uL (4.38-5.82); RED CELL DISTRIBUTION WIDTH 21.5 % (9.4-14.8)
[2017-10-11 07:25] LABS: MD YES
[2017-10-11 07:28] LABS: ANISOCYTOSIS 2+; BAND#(MANUAL) 0.19 x10^3/uL; BANDS%(MANUAL) 1 % (0-7); LYMPH#(MANUAL) 1.94 x10^3/uL (1-3.4); LYMPHS% (MANUAL) 10 % (22-44); MONOS#(MANUAL) 2.13 x10^3/uL (0.3-2.7); MONOS% (MANUAL) 11 % (2-9); NRBC % (MANUAL) 9 % (0-1); SEG#(MANUAL) 15.13 x10^3/uL (1.8-6.8); SEGS% (MANUAL) 78 % (42-75)
[2017-10-11 07:33] LABS: <PLATELET ESTIMATE> ADEQUATE; POLYCHROMASIA 2+; SICKLE CELLS 2+; TARGET CELLS 1+
[2017-10-11 07:34] LABS: LARGE PLATELETS 1+
[2017-10-11] MEDS: SENNA/DOCUSATE TABLET PO SCH (08:05)
[2017-10-11 08:11] VITALS: BP 131/70
[2017-10-11] MEDS: ENOXAPARIN 40 MG/0.4 ML SQ SCH (11:46)
[2017-10-11] MEDS: CEFTRIAXONE PMX 1GM/50ML 50 ML IV SCH (14:06)
[2017-10-11 14:12] VITALS: BP 136/82
[2017-10-11 19:11] LABS: MICROSCOPIC AUTO
[2017-10-11] MEDS: DOCUSATE 100 MG CAPSULE PO PRN (19:53)
[2017-10-11 20:21] VITALS: BP 123/80
[2017-10-12] MEDS: morphine SULFATE 10 MG/ML, 1ML IVPush PRN ×7 (00:42→21:34)
[2017-10-12 01:49] VITALS: BP 118/74
[2017-10-12] MEDS: OxyconTIN ER 20 MG TAB.ER PO SCH ×2 (03:39→14:50)
[2017-10-12 05:42] LABS: MEAN CORPUSCULAR HEMOGLOBIN 37.4 pg (27.5-34.5); MEAN CORPUSCULAR HGB CONC 34.9 g/dL (33.2-36.2); MEAN CORPUSCULAR VOLUME 107.2 fL (81-97); MEAN PLATELET VOLUME 9.7 fL (7.4-10.4); PLATELET COUNT 157 x10^3/uL (130-400); RED CELL DISTRIBUTION WIDTH 20.3 % (9.4-14.8)
[2017-10-12 05:43] LABS: SEDIMENTATION RATE 68 mm/hr (0-10)
[2017-10-12 05:44] LABS: HCT (SEDRATE) 19.3 % (39.2-51.8); MD YES
[2017-10-12 05:46] LABS: LYMPH#(MANUAL) 3.34 x10^3/uL (1-3.4); LYMPHS% (MANUAL) 16 % (22-44); MONOS#(MANUAL) 2.72 x10^3/uL (0.3-2.7); MONOS% (MANUAL) 13 % (2-9); NRBC % (MANUAL) 2 % (0-1); SEG#(MANUAL) 14.84 x10^3/uL (1.8-6.8); SEGS% (MANUAL) 71 % (42-75)
[2017-10-12 05:48] LABS: ANISOCYTOSIS 2+; POLYCHROMASIA 2+; SICKLE CELLS 2+; TARGET CELLS 1+
[2017-10-12 05:49] LABS: <PLATELET ESTIMATE> ADEQUATE; LARGE PLATELETS 1+
[2017-10-12] MEDS: ACETAMINOPHEN 325 MG TABLET PO SCH ×4 (06:23→23:59)
[2017-10-12] MEDS: OXYcodone IR 5MG TABLET PO PRN ×3 (06:30→21:33)
[2017-10-12 07:27] VITALS: BP 103/51
[2017-10-12] MEDS: VANCOMYCIN 1,500 MG in SODIUM CHLORIDE 0.9% 250 ML IV SCH ×2 (08:12→21:33)
[2017-10-12] MEDS: SENNA/DOCUSATE TABLET PO SCH (08:25)
[2017-10-12] MEDS: DOCUSATE 100 MG CAPSULE PO PRN ×2 (08:25→21:33)
[2017-10-12] MEDS: ENOXAPARIN 40 MG/0.4 ML SQ SCH (13:05)
[2017-10-12 13:39] VITALS: BP 117/68
[2017-10-12] MEDS: CEFTRIAXONE PMX 1GM/50ML 50 ML IV SCH (14:03)
[2017-10-12 19:44] VITALS: BP 117/68
[2017-10-13] VITALS (8 sets, daily range): BP systolic 110–129; BP diastolic 59–85
[2017-10-13] MEDS: morphine SULFATE 10 MG/ML, 1ML IVPush PRN ×3 (00:19→06:36)
[2017-10-13] MEDS: OXYcodone IR 5MG TABLET PO PRN ×4 (01:28→21:33)
[2017-10-13] MEDS: OxyconTIN ER 20 MG TAB.ER PO SCH ×2 (03:28→15:39)
[2017-10-13] MEDS: ACETAMINOPHEN 325 MG TABLET PO SCH ×3 (06:01→18:30)
[2017-10-13 06:21] LABS: MEAN CORPUSCULAR HEMOGLOBIN 36.8 pg (27.5-34.5); MEAN CORPUSCULAR HGB CONC 35.1 g/dL (33.2-36.2); MEAN CORPUSCULAR VOLUME 104.6 fL (81-97); RED BLOOD COUNT 1.58 x10^6/uL (4.38-5.82); RED CELL DISTRIBUTION WIDTH 20.1 % (9.4-14.8)
[2017-10-13 06:47] LABS: MD YES; MEAN PLATELET VOLUME 9.6 fL (7.4-10.4); PLATELET COUNT 172 x10^3/uL (130-400)
[2017-10-13 06:51] LABS: LYMPHS% (MANUAL) 19 % (22-44); MONOS#(MANUAL) 0.82 x10^3/uL (0.3-2.7); MONOS% (MANUAL) 4 % (2-9); NRBC % (MANUAL) 5 % (0-1); SEG#(MANUAL) 15.79 x10^3/uL (1.8-6.8); SEGS% (MANUAL) 77 % (42-75)
[2017-10-13 06:52] LABS: ANISOCYTOSIS 2+; POLYCHROMASIA 2+; SICKLE CELLS 2+; TARGET CELLS 1+
[2017-10-13 06:53] LABS: OVALOCYTES 1+
[2017-10-13 06:54] LABS: <PLATELET ESTIMATE> ADEQUATE; LARGE PLATELETS 1+
[2017-10-13] MEDS: SENNA/DOCUSATE TABLET PO SCH (09:47)
[2017-10-13] MEDS: VANCOMYCIN 1,500 MG in SODIUM CHLORIDE 0.9% 250 ML IV SCH (09:47)
[2017-10-13] MEDS: ENOXAPARIN 40 MG/0.4 ML SQ SCH (12:14)
[2017-10-13] MEDS: CEFTRIAXONE PMX 1GM/50ML 50 ML IV SCH (14:20)
[2017-10-13] MEDS ORDERED: OMNIPAQUE 350 MG/ML, 100ML BOTTLE ONE (16:22)
[2017-10-13 17:20] LABS: RED BLOOD COUNT 1.58 x10^6/uL (4.38-5.82)
[2017-10-13 17:21] LABS: ABSOLUTE RETICS # 0.152 x10^6/uL (0.5-1.5); RETICULOCYTE COUNT % 9.6 % (0.5-1.5)
[2017-10-13] MEDS ORDERED: VANCOMYCIN 1,200 MG in SODIUM CHLORIDE 0.9% 250 ML IV SCH (18:00)
[2017-10-14] MEDS: ACETAMINOPHEN 325 MG TABLET PO SCH ×4 (00:04→17:36)
[2017-10-14 01:18] VITALS: BP 105/65
[2017-10-14] MEDS: OxyconTIN ER 20 MG TAB.ER PO SCH ×2 (03:05→15:16)
[2017-10-14 05:52] LABS: MD YES; MEAN CORPUSCULAR HEMOGLOBIN 34.7 pg (27.5-34.5); MEAN CORPUSCULAR HGB CONC 34.4 g/dL (33.2-36.2); MEAN CORPUSCULAR VOLUME 101.1 fL (81-97); MEAN PLATELET VOLUME 9.5 fL (7.4-10.4); PLATELET COUNT 193 x10^3/uL (130-400); RED BLOOD COUNT 1.74 x10^6/uL (4.38-5.82); RED CELL DISTRIBUTION WIDTH 21.3 % (9.4-14.8)
[2017-10-14 05:54] LABS: BAND#(MANUAL) 0.19 x10^3/uL; BANDS%(MANUAL) 1 % (0-7); LYMPH#(MANUAL) 4.65 x10^3/uL (1-3.4); LYMPHS% (MANUAL) 25 % (22-44); MONOS#(MANUAL) 1.86 x10^3/uL (0.3-2.7); MONOS% (MANUAL) 10 % (2-9); NRBC % (MANUAL) 2 % (0-1); SEGS% (MANUAL) 64 % (42-75)
[2017-10-14 05:55] LABS: ANISOCYTOSIS 2+; OVALOCYTES 1+; POLYCHROMASIA 1+; TARGET CELLS 1+
[2017-10-14 05:59] LABS: SICKLE CELLS 1+
[2017-10-14 06:00] LABS: <PLATELET ESTIMATE> ADEQUATE; LARGE PLATELETS 1+
[2017-10-14] MEDS ORDERED: SODIUM CHLORIDE 0.9% 1,000 ML IV SCH (07:30)
[2017-10-14] MEDS: OXYcodone IR 5MG TABLET PO PRN ×3 (08:54→17:37)
[2017-10-14] MEDS: SENNA/DOCUSATE TABLET PO SCH (08:54)
[2017-10-14 10:06] VITALS: BP 101/52
[2017-10-14] MEDS: ENOXAPARIN 40 MG/0.4 ML SQ SCH (12:21)
[2017-10-14 13:46] VITALS: BP 125/63
[2017-10-14] MEDS: CEFTRIAXONE PMX 1GM/50ML 50 ML IV SCH (15:13)
[2017-10-14] MEDS ORDERED: ACET325T14 PO (16:40)
[2017-10-14] MEDS ORDERED: HYDR500C PO (16:55)
== END 2017-10-14 18:36 | disposition home or self-care (01) | DRG 871 ==
LOC: ED 20:09 → EDIP 10-10 00:13 → 3NE 10-10 00:50 → 3NW 10-10 01:05
PROVIDERS: ADMIT Internal Medicine; ATTEND Internal Medicine
PROC: 30233N1 Transfusion of Nonautologous Red Blood Cells into Peripheral Vein, Percutaneous Approach (ICD-10-PCS; principal; 2017-10-13)
DX: A41.9 Sepsis, unspecified organism (principal); D57.00 Hb-SS disease with crisis, unspecified; E83.42 Hypomagnesemia; F12.90 Cannabis use, unspecified, uncomplicated; G47.00 Insomnia, unspecified; N20.0 Calculus of kidney; Z80.0 Family history of malignant neoplasm of digestive organs; Z87.442 Personal history of urinary calculi; Z85.47 Personal history of malignant neoplasm of testis
CPT/HCPCS: 36415; 71046; 72158; 74018; 74170; 76770; 80053; 80061; 80202; 81001; 82150; 82306; 82607; 83010; 83036; 83540; 83550; 83615; 83690; 83735; 84145; 84439; 84443; 84484; 85025; 85045; 85651; 86140; 86850; 86900; 86902; 86923; 87040; 87086; 87147; 93005; 93306; 96361; 96374; 96375; 96376; A9585; J0696; J1170; J1650; J2550; J3370; Q0162; Q9967; J2270; J3475; J7030; J7050; P9016